=== PATIENT | female | born 1950 | race Asian ===

== ENCOUNTER 2018-05-04 08:34 | Day surgery (SDC) | payer OTHER ==
[2018-04-27 14:54] VITALS: BMI 17.4
[2018-05-04] MEDS ORDERED: PROPOFOL 20 ML ONE ×2 (08:51)
[2018-05-04 12:19] VITALS: TEMP 97.8
[2018-05-04 13:50] VITALS: BP 120/67; PULSE 74
--- NOTE | 2018-05-12 09:36 | PATH ---
Surgical Pathology Report Patient Name: DL VARGAS [facility]. Rec. #: [id number] /Age/Gender: 1950 (Age: 67) / F Account: [id number] Location: [facility] AMBULATORY Taken: 05/04/2018 Received: 05/04/2018 Reported: 05/06/2018 Physicians: Dread Cobos M.D. Specimen(s) Received A: BX DUODENUM B: BX ANTRUM C: GASTRIC POLYP Clinical History GERD, rule out colon cancer Postoperative diagnosis: Gastritis, rule out celiac disease, gastric polyp Final Diagnosis A. DUODENUM, BIOPSY: DUODENAL MUCOSA SHOWING VILLOUS BLUNTING, INCREASE IN INTRAEPITHELIAL LYMPHOCYTES AND DENSE LYMPHOPLASMACYTIC INFILTRATE WITHIN LAMINA PROPRIA; THESE FEATURES MAY BE SEEN IN ASSOCIATION WITH CELIAC DISEASE OR OTHER MALABSORPTION-RELATED DISORDERS. CORRELATION WITH CLINICAL AND SEROLOGIC FINDING IS RECOMMENDED. B. ANTRUM, BIOPSY: MILD CHRONIC GASTRITIS. IMMUNOSTAIN IS NEGATIVE PYLORI ORGANISMS. C. GASTRIC POLYP, BIOPSY: GASTRIC FUNDIC GLAND POLYP. IMMUNOSTAIN IS NEGATIVE FOR H. PYLORI ORGANISMS. Electronically Signed Indira Zamudio M.D. Gross Description A. Received in formalin, labeled "duodenum" are 2 espinoza, irregular portions of soft tissue measuring 0.4 and 0.5 cm. in greatest dimension. The specimens are submitted in toto in one cassette. B. Received in formalin, labeled "antrum" are 3 espinoza, irregular portions of soft tissue ranging from 0.2-0.5 cm. in greatest dimension. The specimens are submitted in toto in one cassette. C. Received in formalin, labeled "gastric polyp" is a espinoza, irregular portion of soft tissue measuring 0.4 cm. in greatest dimension. The specimen is submitted in toto in one cassette. 05/04/2018 saudi05/04/2018
== END 2018-05-04 12:50 | disposition home or self-care (01) ==
LOC: FASU 08:34
PROVIDERS: ATTEND Internal Medicine Gastroenterology
PROC: 0DB68ZX Excision of Stomach, Via Natural or Artificial Opening Endoscopic, Diagnostic (ICD-10-PCS; 2018-05-04)
PROC: 0DJD8ZZ Inspection of Lower Intestinal Tract, Via Natural or Artificial Opening Endoscopic (ICD-10-PCS; principal; 2018-05-04 11:27)
PROC: 0DB98ZX Excision of Duodenum, Via Natural or Artificial Opening Endoscopic, Diagnostic (ICD-10-PCS; 2018-05-04 11:27)
DX: Z12.11 Encounter for screening for malignant neoplasm of colon (principal); K29.50 Unspecified chronic gastritis without bleeding; K31.9 Disease of stomach and duodenum, unspecified; K31.7 Polyp of stomach and duodenum
CPT/HCPCS: 88305-TC; 88342-TC

== ENCOUNTER 2019-11-08 07:22 | Day surgery (SDC) | payer OTHER ==
[2019-11-05 10:03] VITALS: BMI 16.6
[2019-11-08] MEDS ORDERED: LIDOCAINE HCL/PF 2% SDV 5ML VIAL ONE (07:53)
[2019-11-08] MEDS ORDERED: PROPOFOL 20 ML ONE ×3 (07:53→09:48)
[2019-11-08 09:00] VITALS: TEMP 98.7
[2019-11-08 11:06] VITALS: BP 125/84; PULSE 68
--- NOTE | 2019-11-10 18:17 | PATH ---
Surgical Pathology Report Patient Name: DL VARGAS [facility]. Rec. #: [id number] /Age/Gender: 1950 (Age: 69) / F Account: [id number] Location: [facility] Taken: 11/08/2019 Received: 11/08/2019 Reported: 11/10/2019 Physicians: Dread Cobos M.D. Specimen(s) Received A: SECOND PORTION DUODENUM B: DUODENAL BULB C: ANTRUM Clinical History GERD, history celiac Postoperative diagnosis: Gastritis, history celiac Final Diagnosis A. DUODENUM, SECOND PORTION, BIOPSY: DUODENAL MUCOSA WITH INCREASED ACUTE AND CHRONIC INFLAMMATORY INFILTRATE WITHIN LAMINA PROPRIA AND FOCAL MILD INCREASE IN INTRAEPITHELIAL LYMPHOCYTES WITHOUT VILLOUS ATROPHY. SEE COMMENT. B. DUODENAL BULB, BIOPSY: DUODENAL MUCOSA WITH INCREASED ACUTE AND CHRONIC INFLAMMATORY INFILTRATE WITHIN LAMINA PROPRIA AND MILD INCREASE IN INTRAEPITHELIAL LYMPHOCYTES WITHOUT VILLOUS ATROPHY. C. GASTRIC ANTRUM, BIOPSY: GASTRIC ANTRAL MUCOSA WITH MILD CHRONIC GASTRITIS. IMMUNOHISTOCHEMICAL STAIN FOR H. PYLORI IS NEGATIVE. Comment: Part A & B, Although nonspecific, findings are compatible with history of celiac disease. Suggest clinical and endoscopic correlation. Positive and negative controls (internal if applicable) show appropriate results. Electronically Signed Yari Aquino M.D. Gross Description A. Received in formalin, labeled "second portion duodenum" are 4 espinoza, irregular portions of soft tissue ranging in size from 0.1-0.4 cm. in greatest dimension. The specimens are submitted in toto in one cassette. B. Received in formalin, labeled "duodenal bulb" are 2 espinoza, irregular portions of soft tissue measuring 0.3 cm. in greatest dimension. The specimens are submitted in toto in one cassette. C. Received in formalin, labeled "gastric antrum" are 2 espinoza, irregular portions of soft tissue measuring 0.3 and 0.5 cm. in greatest dimension. The specimens are submitted in toto in one cassette. MLSZ/11/09/2019 sanml/11/09/2019
== END 2019-11-08 11:30 | disposition home or self-care (01) ==
LOC: FASU-ENDO 07:22
PROVIDERS: ATTEND Internal Medicine Gastroenterology
PROC: 0DB68ZX Excision of Stomach, Via Natural or Artificial Opening Endoscopic, Diagnostic (ICD-10-PCS; 2019-11-08)
PROC: 0DB98ZX Excision of Duodenum, Via Natural or Artificial Opening Endoscopic, Diagnostic (ICD-10-PCS; principal; 2019-11-08 09:58)
DX: K29.50 Unspecified chronic gastritis without bleeding (principal); K31.9 Disease of stomach and duodenum, unspecified; R63.4 Abnormal weight loss; R10.13 Epigastric pain
CPT/HCPCS: 88305-TC; 88342-TC

== ENCOUNTER 2024-05-06 12:40 | Emergency (ER) | payer OTHER, MEDICARE ==
[2024-05-06 12:53] VITALS: BP 129/77; PULSE 78; RESP 18; TEMP 98; BMI 19.2
[2024-05-06] MEDS ORDERED: LIDOCAINE 2.5%/PRILOCAINE 2.5% (5 Gram/TUBE) TP ONE (13:32)
[2024-05-06] MEDS: LIDOCAINE 2.5%/PRILOCAINE 2.5% 30 GRAM TUBE TP ONE (13:35)
== END 2024-05-06 14:05 | disposition home or self-care (01) ==
LOC: FER 12:40
DX: S01.511A Laceration without foreign body of lip, initial encounter (principal); W01.0XXA Fall on same level from slipping, tripping and stumbling without subsequent striking against object, initial encounter
CPT/HCPCS: 99283-25

== ENCOUNTER 2024-08-03 09:19 | Emergency (ER) | payer OTHER, MEDICARE ==
[2024-08-03 09:26] VITALS: BP 175/95; PULSE 78; RESP 18; TEMP 98.1; BMI 17.2
== END 2024-08-03 11:40 | disposition home or self-care (01) ==
LOC: FER 09:19
DX: S00.83XA Contusion of other part of head, initial encounter (principal); W22.8XXA Striking against or struck by other objects, initial encounter; W01.198A Fall on same level from slipping, tripping and stumbling with subsequent striking against other object, initial encounter
CPT/HCPCS: 70450-TC; 70480-TC; 70486-TC; 72125-TC; 99284-25

== ENCOUNTER 2025-04-14 05:10 | Emergency (ER) | payer OTHER, MEDICARE ==
[2025-04-14 05:21] VITALS: BP 168/83; PULSE 81; RESP 18; TEMP 97.9; BMI 17.2
== END 2025-04-14 06:24 | disposition home or self-care (01) ==
LOC: FER 05:10
PROC: 0HQ0XZZ Repair Scalp Skin, External Approach (ICD-10-PCS; principal; 2025-04-14)
DX: S01.01XA Laceration without foreign body of scalp, initial encounter (principal); W22.09XA Striking against other stationary object, initial encounter
CPT/HCPCS: 99283-25

== ENCOUNTER 2025-05-06 22:35 | Emergency (ER) | payer OTHER, MEDICARE ==
[2025-05-06 22:50] VITALS: BP 149/85; PULSE 80; RESP 17; TEMP 98.2; BMI 17.2
== END 2025-05-07 01:16 | disposition home or self-care (01) ==
LOC: FER 22:35
DX: S00.83XA Contusion of other part of head, initial encounter (principal); W01.198A Fall on same level from slipping, tripping and stumbling with subsequent striking against other object, initial encounter; Y92.009 Unspecified place in unspecified non-institutional (private) residence as the place of occurrence of the external cause; Y93.01 Activity, walking, marching and hiking
CPT/HCPCS: 70450-TC; 70486-TC; 72125-TC; 99284-25